=== PATIENT | female | born 1940 | race Two or more races ===

== ENCOUNTER 2017-07-17 09:40 | Inpatient (IN) | payer OTHER ==
[~2017-07-17] VITALS: Ht 154.9 cm; Wt 67.8 kg
[2017-07-17] MEDS ORDERED: SODIUM CHLORIDE FLUSH 10ML SYR IVF ONE ×2 (10:00→11:30)
[2017-07-17 10:25] LABS: HEMATOCRIT 35.7 % (34.6-47.8); HEMOGLOBIN 11.9 g/dL (11.7-16.4); WHITE BLOOD COUNT 5.6 x10^3/uL (3.4-10)
[2017-07-17 10:37] LABS: BLOOD UREA NITROGEN 29 mg/dL (7-18)
[2017-07-17] MEDS ORDERED: INSULIN REGULAR 100 UNITS/ML, 3ML VIAL IVPush ONE (11:00)
[2017-07-17] MEDS ORDERED: SODIUM BICARB 8.4%, 50ML SYRINGE IVPush ONE (11:00)
[2017-07-17] MEDS ORDERED: SODIUM POLY SULFONATE UDC 15 GM/60 ML PO ONE (11:00)
[2017-07-17] MEDS ORDERED: FUROSEMIDE 40 MG/4 ML IVPush ONE (11:00)
[2017-07-17] MEDS ORDERED: DEXTROSE 50%, 50ML SYRINGE IVPush ONE (11:00)
[2017-07-17] MEDS ORDERED: CALCIUM CHLORIDE 10%, 10ML SYR IVPush ONE (11:00)
[2017-07-17] MEDS ORDERED: DEXTROSE 50%, 50ML VIAL ONE (11:10)
[2017-07-17] MEDS ORDERED: CALCIUM CHLORIDE 10%, 10ML SYR ONE (11:10)
[2017-07-17] MEDS ORDERED: FUROSEMIDE 40 MG/4 ML ONE (11:11)
[2017-07-17] MEDS ORDERED: INSULIN SINGLE DOSE, ER SQ-INSULIN ONE (11:12)
[2017-07-17] MEDS ORDERED: cholesterol med PO (11:13)
[2017-07-17] MEDS ORDERED: LOSA100T6 PO (11:13)
[2017-07-17] MEDS ORDERED: METF500T4 PO (11:13)
[2017-07-17] MEDS ORDERED: SODIUM CHLORIDE 0.9% 1,000 ML IV ONE (11:13)
[2017-07-17] MEDS ORDERED: LEVO25TA2 PO (11:13)
[2017-07-17] MEDS ORDERED: SODIUM CHLORIDE 0.9% 1,000ML IVBOLUS ONE (11:30)
[2017-07-17] MEDS ORDERED: BISACODYL 10 MG SUPP PR PRN (13:00)
[2017-07-17] MEDS ORDERED: DOCUSATE 100 MG CAPSULE PO PRN (13:00)
[2017-07-17] MEDS ORDERED: LABETALOL 5MG/ML, 20ML IVPush PRN (13:00)
[2017-07-17] MEDS ORDERED: POLYETHYLENE GLYCOL 17 GM PACKET PO PRN (13:00)
[2017-07-17 16:03] VITALS: BP 132/71
[2017-07-17] MEDS: HEPARIN 5,000 UNITS/ML, 1ML SQ SCH ×2 (16:18→22:22)
[2017-07-17] MEDS: AMLODIPINE 5 MG TABLET PO SCH (16:18)
[2017-07-17 19:37] VITALS: BP 145/75
[2017-07-17 19:57] VITALS: BP 152/78
[2017-07-18 02:40] VITALS: BP 144/69
[2017-07-18 05:37] LABS: HEMATOCRIT 37.9 % (34.6-47.8); HEMOGLOBIN 12.6 g/dL (11.7-16.4); WHITE BLOOD COUNT 7.3 x10^3/uL (3.4-10)
[2017-07-18] MEDS: LEVOTHYROXINE 25 MCG TABLET PO SCH (05:40)
[2017-07-18] MEDS: ASPIRIN 325 MG TABLET EC PO SCH (05:40)
[2017-07-18] MEDS: HEPARIN 5,000 UNITS/ML, 1ML SQ SCH ×3 (05:40→20:38)
[2017-07-18 06:01] LABS: ASPARTATE AMINO TRANSFERASE 24 U/L (15-37); BLOOD UREA NITROGEN 37 mg/dL (7-18); FERRITIN 70.8 ng/mL (8-252); TOTAL IRON BINDING CAPACITY 318 mcg/dL (250-450)
[2017-07-18 07:14] VITALS: BP 149/87
[2017-07-18] MEDS: AMLODIPINE 5 MG TABLET PO SCH (08:24)
[2017-07-18] MEDS ORDERED: LOVA40TA2 PO (08:41)
[2017-07-18] MEDS ORDERED: LINA5TAB PO (08:41)
[2017-07-18] MEDS ORDERED: GABA-827 PO (08:41)
[2017-07-18] MEDS ORDERED: DEXTROSE 50%, 50ML SYRINGE IVPush PRN (09:30)
[2017-07-18] MEDS ORDERED: GLUCAGON 1 MG IM PRN (09:30)
[2017-07-18] MEDS ORDERED: DEXTROSE 4 GM TAB.CHEW PO PRN (09:30)
[2017-07-18] MEDS: INSULIN ASPART 100 UNITS/ML, PEN SQ-INSULIN SCH ×3 (11:00→20:38)
[2017-07-18] MEDS: SODIUM BICARBONATE 650 MG TABLET PO SCH ×2 (12:28→17:11)
[2017-07-18 15:54] VITALS: BP 156/65
[2017-07-18] MEDS: GABAPENTIN 400 MG CAPSULE PO SCH ×2 (17:11→20:37)
[2017-07-18 20:00] VITALS: BP 134/66
[2017-07-18] MEDS: LOVASTATIN 40 MG TABLET PO SCH (20:37)
[2017-07-18] MEDS: SODIUM CHLORIDE FLUSH 10ML SYR IVF SCH (20:39)
[2017-07-19 03:50] VITALS: BP 111/64
[2017-07-19 05:53] LABS: BLOOD UREA NITROGEN 37 mg/dL (7-18)
[2017-07-19] MEDS: LEVOTHYROXINE 25 MCG TABLET PO SCH (06:23)
[2017-07-19] MEDS: HEPARIN 5,000 UNITS/ML, 1ML SQ SCH ×3 (06:23→22:06)
[2017-07-19] MEDS: ASPIRIN 325 MG TABLET EC PO SCH (06:23)
[2017-07-19] MEDS: INSULIN ASPART 100 UNITS/ML, PEN SQ-INSULIN SCH ×4 (07:00→22:07)
[2017-07-19 07:24] VITALS: BP 139/72
[2017-07-19] MEDS: TEMPLATE NON-FORMULARY MED. (Linagliptin** (Tradjenta**) 5 MG) PO SCH (09:00)
[2017-07-19] MEDS: SODIUM CHLORIDE FLUSH 10ML SYR IVF SCH ×2 (09:00→22:06)
[2017-07-19] MEDS: AMLODIPINE 5 MG TABLET PO SCH (10:34)
[2017-07-19] MEDS: SODIUM BICARBONATE 650 MG TABLET PO SCH ×3 (10:34→17:00)
[2017-07-19] MEDS: GABAPENTIN 400 MG CAPSULE PO SCH ×3 (10:34→22:06)
[2017-07-19] MEDS ORDERED: SODIUM POLYSTYRENE SULFONATE ORAL SUSP PO ONE (11:30)
[2017-07-19 13:57] VITALS: BP 125/78
[2017-07-19 16:23] LABS: BLOOD UREA NITROGEN 40 mg/dL (7-18)
[2017-07-19 19:04] VITALS: BP 129/79
[2017-07-19] MEDS: LOVASTATIN 40 MG TABLET PO SCH (22:06)
[2017-07-19] MEDS ORDERED: ZOLPIDEM 10MG TABLET ONE (23:23)
[2017-07-20 02:44] VITALS: BP 114/67
[2017-07-20] MEDS: ASPIRIN 325 MG TABLET EC PO SCH (06:01)
[2017-07-20] MEDS: LEVOTHYROXINE 25 MCG TABLET PO SCH (06:01)
[2017-07-20] MEDS: HEPARIN 5,000 UNITS/ML, 1ML SQ SCH ×3 (06:01→20:43)
[2017-07-20 06:10] LABS: BLOOD UREA NITROGEN 40 mg/dL (7-18)
[2017-07-20 06:59] VITALS: BP 112/69
[2017-07-20] MEDS: INSULIN ASPART 100 UNITS/ML, PEN SQ-INSULIN SCH ×4 (07:00→20:27)
[2017-07-20] MEDS: SODIUM BICARBONATE 650 MG TABLET PO SCH ×3 (08:14→16:40)
[2017-07-20] MEDS: GABAPENTIN 400 MG CAPSULE PO SCH ×3 (08:14→20:43)
[2017-07-20] MEDS: AMLODIPINE 5 MG TABLET PO SCH (08:15)
[2017-07-20] MEDS: SODIUM CHLORIDE FLUSH 10ML SYR IVF SCH ×2 (08:15→20:44)
[2017-07-20] MEDS: TEMPLATE NON-FORMULARY MED. (Linagliptin** (Tradjenta**) 5 MG) PO SCH (09:00)
[2017-07-20] MEDS ORDERED: COSYNTROPIN 0.25 MG IM ONE (11:30)
[2017-07-20 12:26] VITALS: BP 119/73
[2017-07-20 20:41] VITALS: BP 139/69
[2017-07-20] MEDS: LOVASTATIN 40 MG TABLET PO SCH (20:43)
[2017-07-21 02:30] VITALS: BP 133/71
[2017-07-21 05:45] LABS: BLOOD UREA NITROGEN 36 mg/dL (7-18)
[2017-07-21] MEDS: ASPIRIN 325 MG TABLET EC PO SCH (06:34)
[2017-07-21] MEDS: LEVOTHYROXINE 25 MCG TABLET PO SCH (06:34)
[2017-07-21] MEDS: HEPARIN 5,000 UNITS/ML, 1ML SQ SCH (06:34)
[2017-07-21] MEDS: INSULIN ASPART 100 UNITS/ML, PEN SQ-INSULIN SCH ×2 (07:00→11:00)
[2017-07-21 07:12] VITALS: BP 118/64
[2017-07-21] MEDS: SODIUM BICARBONATE 650 MG TABLET PO SCH ×2 (08:28→11:57)
[2017-07-21] MEDS: GABAPENTIN 400 MG CAPSULE PO SCH (08:28)
[2017-07-21] MEDS: AMLODIPINE 5 MG TABLET PO SCH (08:28)
[2017-07-21] MEDS: TEMPLATE NON-FORMULARY MED. (Linagliptin** (Tradjenta**) 5 MG) PO SCH (08:29)
[2017-07-21] MEDS: SODIUM CHLORIDE FLUSH 10ML SYR IVF SCH (08:29)
[2017-07-21] MEDS ORDERED: AMLO5TAB2 PO (13:37)
[2017-07-21] MEDS ORDERED: SODI650T PO ×2 (14:55→15:08)
[2017-07-22 14:11] LABS: UR ALBUMIN 72.6 % (.); UR ALPHA-2-GLOBULIN 5.5 % (.); UR BETA GLOBULIN 7.3 % (.); UR GAMMA GLOBULIN 10.6 % (.); UR M-SPIKE % Not Observed % (Not Observed)
[2017-07-22 15:06] LABS: A/G RATIO 0.9 (0.7-1.7); ALBUMIN 3.8 g/dL (2.9-4.4); ALPHA-1-GLOBULIN 0.2 g/dL (0.0-0.4); BETA GLOBULIN 1.1 g/dL (0.7-1.3); PROTEIN TOTAL 7.8 g/dL (6.0-8.5)
== END 2017-07-21 14:29 | disposition home or self-care (01) | DRG 683 ==
LOC: ED 10:22 → EDIP 11:40 → 4EST 13:16
PROVIDERS: ADMIT Internal Medicine; ATTEND Internal Medicine
PROC: 0T9B70Z Drainage of Bladder with Drainage Device, Via Natural or Artificial Opening (ICD-10-PCS; principal; 2017-07-17)
DX: N17.9 Acute kidney failure, unspecified (principal); E87.2 Acidosis; E87.5 Hyperkalemia; E11.21 Type 2 diabetes mellitus with diabetic nephropathy; E11.22 Type 2 diabetes mellitus with diabetic chronic kidney disease; E86.0 Dehydration; D63.1 Anemia in chronic kidney disease; E03.9 Hypothyroidism, unspecified; E78.5 Hyperlipidemia, unspecified; H40.9 Unspecified glaucoma; H54.0 Blindness, both eyes; I12.9 Hypertensive chronic kidney disease with stage 1 through stage 4 chronic kidney disease, or unspecified chronic kidney disease; I83.90 Asymptomatic varicose veins of unspecified lower extremity; N18.3 Chronic kidney disease, stage 3 (moderate); Z96.652 Presence of left artificial knee joint; Z86.73 Personal history of transient ischemic attack (TIA), and cerebral infarction without residual deficits; Z79.84 Long term (current) use of oral hypoglycemic drugs; Z79.899 Other long term (current) drug therapy
CPT/HCPCS: 36415; 76770; 80048; 80053; 81003; 82040; 82088; 82306; 82533; 82570; 82728; 82962; 83036; 83540; 83550; 83735; 83970; 84100; 84155; 84156; 84165; 84166; 84244; 84443; 85025; 93005; 96374; 96375; J1644; J1815; J1940; J0834

== ENCOUNTER 2017-12-10 10:47 | Emergency (ER) | payer OTHER ==
[~2017-12-10 10:47] MED LIST: AMLO5TAB2 PO; GABA-827 PO; LEVO25TA2 PO; LINA5TAB PO; LOSA100T6 PO; LOVA40TA2 PO; METF500T4 PO; SODI650T PO; cholesterol med PO
== END 2017-12-10 11:53 | disposition left against medical advice (07) ==
LOC: ED 11:47
DX: M25.519 Pain in unspecified shoulder (principal); Z53.21 Procedure and treatment not carried out due to patient leaving prior to being seen by health care provider